=== PATIENT | male | born 1945 | race Caucasian/White ===

== ENCOUNTER 2018-02-22 09:18 | Inpatient (IN) | payer OTHER ==
--- NOTE | 2018-02-22 09:53 | EDPHY ---
General Time Seen by Provider: 02/22/18 09:50 Narrative: CHIEF COMPLAINT: Abdominal pain, previous bowel obstruction HISTORY OF PRESENT ILLNESS: Patient presents with complaints of abdominal pain with previous bowel obstruction. He states that he began feeling "a rolling pain by my unable last night."He describes it as constant. Moderate to severe. Gradual onset. He has felt nauseated and had dry heaves. He has decreased appetite. He has been burping since this morning. He does have a history of small-bowel obstruction that was managed conservatively approximately 1 year ago. No surgical intervention. No fever chills. No trauma or injury. He does have constipation. No rectal fullness. No other associated complaints or modifying factors. REVIEW OF SYSTEMS: Ten systems reviewed and are negative unless otherwise noted in the HPI PCP: Located in [place] SPECIALISTS: None PAST MEDICAL HISTORY: Small-bowel obstruction, hypertension PAST SURGICAL HISTORY: No previous surgeries SOCIAL HISTORY: Never smoker. Lives with his in [place]. Currently visiting his son in [place]. 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 There is mild tympany. There is no rigidity or guarding. Bowel sounds are markedly decreased in all 4 quadrants. No palpable mass. No CVA tenderness. Back: non-tender, no bony abnormalities Neurological: A&O, nonfocal, normal gait Skin: Warm and dry, no rash no petechiae or purpura Extremities: Nontender, no pedal edema Psychiatric: Mood and affect normal DIFFERENTIAL DIAGNOSES: Including but not limited to small-bowel obstruction, partial small-bowel obstruction, cecal volvulus, ileus, enteritis, diverticulitis, constipation, obstipation MDM: 9:55 a.m. Abdominal pain with nausea vomiting and decreased appetite with high suspicion for bowel obstruction. 10:45 a.m. CBC reveals mild leukocytosis. Chemistries unremarkable. CT pending. 11:20 a.m. Notified by RN that the patient is complaining of increasing pain. I have re- evaluated him and discussed his allergy to hydromorphone. He states he does have difficulty breathing with but has no problem with morphine and has tolerated this 11:45 p.m. Case discussed with radiologist. CT scan reveals a small bowel obstruction with a transition point right lower quadrant, not involving the appendix. There is also a mass on the right renal pelvis that needs further evaluation. Possibilities include renal cell carcinoma. No other acute findings noted. 12:00 p.m. Case discussed with on-call surgeon Dr. Mcmahon. We discussed the bowel obstruction of the possible mass. We discussed that he has had no previous abdominal surgeries. He recommends placement of a nasogastric tube, admission to the hospitalist and he will evaluate the patient. 12:10 p.m. Patient re-evaluated. He is agreeable to admission to the hospital. He is agreeable to the NG tube placement. We discussed remainder of the CT scan findings. 12:20 p.m. Case discussed with hospitalist Dr. Meade. She has accepted the patient to her service. Patient be admitted to her service in stable condition. 12:[address] Mcmahon is in the department to evaluate the patient. SUPERVISION: Patient was independently examined, but I discussed the case with my secondary supervising physician Dr. Felton - History Smoking Status: Never smoked - Objective Vital Signs: Initial Vital Signs Temperature (C) 98.6 F 02/22/18 09:25 Heart Rate 76 02/22/18 09:25 Respiratory Rate 18 02/22/18 09:25 Blood Pressure 163/86 H 02/22/18 09:25 O2 Sat (%) 92 02/22/18 09:25 O2 Delivery Mode Room Air O2 (L/minute) 2 Allergies/Adverse Reactions: hydromorphone [From Dilaudid] Allergy (Unknown, Verified 02/22/18 15:34) Other-Enter Comments Home Medications: Medication Instructions Recorded Adderall 10 MG (*) 02/22/18 Aspirin EC [Aspirin EC 81 mg (*)] 81 mg PO DAILY 02/22/18 Atacand 02/22/18 Lexapro 02/22/18 Norvasc 10 mg (*) 02/22/18 Omeprazole 40 mg PO DAILY 02/22/18 Potass Cit-Sod Cit-Citric Soln 02/22/18 Laboratory Results: Laboratory Results 02/22/18 09:45 02/22/18 09:45 02/22/18 02/22/18 02/22/18 09:59 09:45 09:45 WBC RBC Hgb POC Hgb 16.0 gm/dL gm/dL (13.7-17.5) Hct POC Hct 47 % % (40-51) MCV MCH MCHC RDW Plt Count MPV Neut % (Auto) Lymph % (Auto) [place] % (Auto) Eos % (Auto) Baso % (Auto) Nucleat RBC Rel Count Absolute Neuts (auto) Absolute Lymphs (auto) Absolute Monos (auto) Absolute Eos (auto) Absolute Basos (auto) Absolute Nucleated RBC Immature Gran % Immature Gran # PT 13.1 SEC SEC (12.0-15.0) INR 0.97 (0.83-1.16) APTT 29.6 SEC SEC (23.0-38.0) POC Sodium 140 mEq/L mEq/L (135-145) Sodium 139 mEq/L mEq/L (135-145) POC Potassium 3.9 mEq/L mEq/L (3.3-5.0) Potassium 4.1 mEq/L mEq/L (3.3-5.0) POC Chloride 105 mEq/L mEq/L (97-110) Chloride 104 mEq/L mEq/L (97-110) Carbon Dioxide 22 mEq/l mEq/l (22-31) Anion Gap 13 mEq/L mEq/L (8-16) POC BUN 27 mg/dL H mg/dL (7-23) BUN 25 mg/dL H mg/dL (7-23) Creatinine 1.1 mg/dL mg/dL (0.7-1.3) POC Creatinine 1.1 mg/dL mg/dL (0.7-1.3) Estimated GFR > 60 Glucose 170 mg/dL H mg/dL (70-100) POC Glucose 178 mg/dL H mg/dL (70-100) Calcium 9.7 mg/dL mg/dL (8.5-10.4) Total Bilirubin 0.9 mg/dL mg/dL (0.1-1.4) Conjugated Bilirubin 0.3 mg/dL mg/dL (0.0-0.5) Unconjugated Bilirubin 0.6 mg/dL mg/dL (0.0-1.1) AST 36 IU/L IU/L (17-59) ALT 52 IU/L IU/L (21-72) Alkaline Phosphatase 84 IU/L IU/L (38-126) Total Protein 7.1 g/dL g/dL (6.3-8.2) Albumin 4.0 g/dL g/dL (3.5-5.0) Lipase 115 IU/L IU/L (23-300) 02/22/18 09:45 WBC 10.65 10^3/uL H 10^3/uL (3.80-9.50) RBC 4.74 10^6/uL 10^6/uL (4.40-6.38) Hgb 15.6 g/dL g/dL (13.7-17.5) POC Hgb Hct 45.2 % % (40.0-51.0) POC Hct MCV 95.4 fL fL (81.5-99.8) MCH 32.9 pg pg (27.9-34.1) MCHC 34.5 g/dL g/dL (32.4-36.7) RDW 13.0 % % (11.5-15.2) Plt Count 249 10^3/uL 10^3/uL (150-400) MPV 9.6 fL fL (8.7-11.7) Neut % (Auto) 80.2 % H % (39.3-74.2) Lymph % (Auto) 11.0 % L % (15.0-45.0) [place] % (Auto) 7.6 % % (4.5-13.0) Eos % (Auto) 0.5 % L % (0.6-7.6) Baso % (Auto) 0.3 % % (0.3-1.7) Nucleat RBC Rel Count 0.0 % % (0.0-0.2) Absolute Neuts (auto) 8.55 10^3/uL H 10^3/uL (1.70-6.50) Absolute Lymphs (auto) 1.17 10^3/uL 10^3/uL (1.00-3.00) Absolute Monos (auto) 0.81 10^3/uL H 10^3/uL (0.30-0.80) Absolute Eos (auto) 0.05 10^3/uL 10^3/uL (0.03-0.40) Absolute Basos (auto) 0.03 10^3/uL 10^3/uL (0.02-0.10) Absolute Nucleated RBC 0.00 10^3/uL 10^3/uL (0-0.01) Immature Gran % 0.4 % % (0.0-1.1) Immature Gran # 0.04 10^3/uL 10^3/uL (0.00-0.10) PT INR APTT POC Sodium Sodium POC Potassium Potassium POC Chloride Chloride Carbon Dioxide Anion Gap POC BUN BUN Creatinine POC Creatinine Estimated GFR Glucose POC Glucose Calcium Total Bilirubin Conjugated Bilirubin Unconjugated Bilirubin AST ALT Alkaline Phosphatase Total Protein Albumin Lipase Medications Given: Discontinued Medications Fentanyl (Sublimaze) 50 mcg IVP EDNOW ONE Stop: 02/22/18 10:06 Last Admin: 02/22/18 10:07 Dose: 50 mcg Sodium Chloride (Ns) 1,000 mls @ 0 mls/hr IV ONCE ONE; Wide Open PRN Reason: Protocol Stop: 02/22/18 10:01 Last Admin: 02/22/18 10:04 Dose: 1,000 mls Morphine Sulfate (Morphine) 4 mg IVP EDNOW ONE Stop: 02/22/18 11:27 Last Admin: 02/22/18 11:29 Dose: 4 mg Ondansetron HCl (Zofran) 4 mg IVP EDNOW ONE Stop: 02/22/18 10:06 Last Admin: 02/22/18 10:08 Dose: 4 mg Point of Care Test Results: Chemistry 02/22/18 09:59 POC Sodium 140 mEq/L mEq/L (135-145) POC Potassium 3.9 mEq/L mEq/L (3.3-5.0) POC Chloride 105 mEq/L mEq/L (97-110) POC BUN 27 mg/dL H mg/dL (7-23) POC Creatinine 1.1 mg/dL mg/dL (0.7-1.3) POC Glucose 178 mg/dL H mg/dL (70-100) ISTAT H&H 02/22/18 09:59 POC Hgb 16.0 gm/dL gm/dL (13.7-17.5) POC Hct 47 % % (40-51) Departure - Departure Disposition: [facility] Acute Clinical Impression: Small bowel obstruction, Renal mass of unknown nature Condition: Good Referrals: NAREN WONG [Other] - As per Instructions
[2018-02-22] MEDS ORDERED: NS 1,000 ML IV ONE (10:00)
[2018-02-22 10:02] LABS: PLATELET COUNT 249 10^3/uL (150-400)
[2018-02-22] MEDS ORDERED: ONDANSETRON 4 MG/2 ML VIAL IVP ONE (10:05)
[2018-02-22] MEDS ORDERED: fentaNYL 100 MCG/2 ML INJ IVP ONE (10:05)
[2018-02-22] MEDS ORDERED: fentaNYL 100 MCG/2 ML INJ ONE (10:06)
[2018-02-22] MEDS ORDERED: ONDANSETRON 4 MG/2 ML VIAL ONE (10:06)
[2018-02-22 10:26] LABS: INR 0.97 (0.83-1.16); PROTIME(PATIENT) 13.1 SEC (12.0-15.0)
[2018-02-22] MEDS ORDERED: IOPAMIDOL (ISOVUE-300) 100 ML BTL ONE (10:56)
[2018-02-22] MEDS ORDERED: ONDANSETRON 4 MG/2 ML VIAL IVP PRN (12:15)
[2018-02-22] MEDS ORDERED: LIDOCAINE 2% JELLY 20 ML (UROJECT) ONE (12:19)
[2018-02-22] MEDS ORDERED: D5W NS 1,000 ML IV SCH (12:30)
--- NOTE | 2018-02-22 14:11 | GCON ---
[f rep st] CONSULTATION REASON FOR CONSULTATION: Small bowel obstruction. HISTORY: The patient presents with nausea and vomiting. Well last evening. His last stool was at 1 p.m. At 3 a.m., he started vomiting, he had at 5 to 6 episodes. He came to the ER at approximately 9 in the morning. The patient is a 72-year-old white male who had a previous bowel obstruction on February 12, 2017. This was treated with decompressive therapy with NG tube. He did not have surgery. There was, however, no followup in terms of a small bowel followthrough to explain the etiology. He has no prior abdominal surgery and no prior intraabdominal infections. There is no family history of inflammatory bowel disease or ulcerative colitis. There is no history of recent upper respiratory tract infection, antibiotic use in the last 6 months, or travel in the last 6 months. He did have diarrhea for 2 to 3 weeks but that stopped 1 week ago. He used to have abdominal pain in the 1980s which went unexplained and was dismissed as irritable bowel syndrome. SOCIAL HISTORY: He smoked from ages 15 to 25 at a peak of 1 pack per day. He does not drink. He had an adverse reaction to Dilaudid in that he could not catch his breath after a dose. This does not sound like an anaphylactic or angioedema like reaction, but perhaps a "stiff chest" as seen with rapid fentanyl dose. He has tolerated other narcotics. MEDICATIONS: His medications include Atacand, Lexapro, Norvasc, Adderall, Prilosec, potassium citrate, and an 81 mg aspirin. PAST SURGICAL HISTORY: His surgeries include a vasectomy which was his first surgery and complicated by extensive hemorrhage requiring transfusion. He has had a right Achilles tendon repair and bilateral cataract extraction. There is no history of rheumatic fever, tuberculosis, or hepatitis. REVIEW OF SYSTEMS: He has been hypertensive for 25 years. He wears hearing aids. He has a full upper dental plate. Approximately one-third of his teeth ( right lower) are also missing. He has poorly fitting dentures and that is to be addressed. He does have esophageal spasm. He does have esophageal reflux, he takes Prilosec for that, and his current symptomatology occurs every 2 to 3 weeks. He is known to have a left bundle branch block. He does wear lenses for visual correction. He has a history of kidney stones. There are no limits on his activities. No history of steroid use. PHYSICAL EXAMINATION: GENERAL: The patient is in minimal distress. NG tube was being placed. There was some difficulty, and I took over and placed the NG tube. He is awake, alert, and oriented. He is hard of hearing. HEENT: Skull is normocephalic and atraumatic. His pupils are equal, round, and reactive. The NG tube is in his right naris and its position in the stomach has been confirmed by Radiology. NECK: Nontender. There is no thyroid enlargement. There are no carotid bruits. LYMPHATIC: There is no cervical, supraclavicular , axillary, or inguinal lymphadenopathy. BACK: Unremarkable. LUNGS: Clear to auscultation. CARDIAC: Exam shows S1, S2 to be normal with normal split of S2 without murmurs, rubs, or gallops. ABDOMEN: Distended. His abdomen has very hypoactive bowel sounds. He is not tender to palpation in any region. He is not tender in his abdomen with cough. I do not detect any hernias. EXTREMITIES: Lower extremities are unremarkable. LABORATORY DATA: Laboratories reveal a white count of 10.6 with 80% neutrophils , hematocrit is 45, platelet count is 249. INR is 0.97. BUN is 25, creatinine is 1.1. The CT shows a small bowel obstruction with transition point in the right lower quadrant. Could this be related to a Meckel diverticulum? I think that is a possibility. There is a 12 mm hypervascular nodule at the lower pole of the right kidney which is suspicious for renal cell carcinoma. That will be followed up at a later time. He does have a small calculus in the left lower pole of his left kidney, consistent with his prior history of nephrolithiasis. IMPRESSION: Patient with small bowel obstruction of uncertain etiology. We will plan place a nasogastric tube (done) and decompress him. He will be kept at bowel rest. If he deteriorates, exploration will be considered but I do not feel it is necessary at this time. If this does resolve without surgery, then I do feel a small bowel followthrough will be important to make sure we have not missed any other process. /[id number]/MODL MTDD
[2018-02-22] MEDS ORDERED: hydrALAZINE 20 MG/ML VIAL IVP PRN (15:31)
--- NOTE | 2018-02-22 15:41 | PDGENHP ---
History and Physical - Chief Complaint abdominal pain, N/V - History of Present Illness 72 yo male with h/o previous SBO 1 year ago presented to ED with abdominal pain , nausea and vomiting. His pain awoke him early this morning. He then developed nausea and vomited multiple times. No hematemesis or coffee ground emesis. Last BM was yesterday afternoon. No fevers, chills, CP or SOB. He had a similar event 1 yr ago which was managed conservatively with NG tube. He has no prior abdominal surgeries. In the ED, CT revealed SBO with transition point in the right lower quadrant. In addition, a right renal mass is incidentally seen. He has a h/o kidney stones, but no known history of renal mass. No weight loss. Surgery consult is obtained, NG tube is placed, and the patient is admitted to the hospital for further management. History Information - Allergies/Home Medication List Allergies/Adverse Reactions: hydromorphone [From Dilaudid] Allergy (Unknown, Verified 02/22/18 15:34) Other-Enter Comments Home Medications: Aspirin EC [Aspirin EC 81 mg (*)] 81 mg PO DAILY 02/22/18 [Last Taken 02/21/18] Candesartan Cilexetil 32 mg PO DAILY 02/22/18 [Last Taken 02/21/18] Dextroamphetamine/Amphetamine [Adderall 30 mg Tablet] 30 mg PO TID 02/22/18 [ Last Taken 02/21/18] Escitalopram Oxalate [Lexapro] 10 mg PO DAILY 02/22/18 [Last Taken 02/21/18] Omeprazole 40 mg PO DAILY 02/22/18 [Last Taken 02/21/18] Potass Cit-Sod Cit-Citric Soln 02/22/18 [Last Taken Unknown] amLODIPine BESYLATE [Norvasc 10 mg (*)] 10 mg PO DAILY 02/22/18 [Last Taken ] I have personally reviewed and updated: family history, medical history, social history, surgical history - Past Medical History GERD, hypertension Additional medical history: ADHA. Kidney stones - Surgical History Additional surgical history: Vasectomy. Achilles tendon repair - Family History Positive for: non-pertinent - Social History Smoking Status: Never smoked Alcohol Use: None Drug Use: None Additional social history: Lives in [place]. He is travelling in [place]. Notes a lot of family stressors. Review of Systems Review of Systems: ROS: 10pt was reviewed & negative except for what was stated in HPI & below Physical Exam Physical Exam: Temp Pulse Resp BP Pulse Ox 37.6 C 74 12 133/72 H 85 L 02/22/18 13:23 02/22/18 13:23 02/22/18 13:23 02/22/18 13:23 02/22/18 13:23 Constitutional: no apparent distress Eyes: PERRL Ears, Nose, Mouth, Throat: moist mucous membranes Cardiovascular: regular rate and rhythym Respiratory: no respiratory distress, clear to auscultation Gastrointestinal: other (soft, mild distention, mild TTP, no r/r/g, +hypoactive bowel tones) Skin: warm Musculoskeletal: full muscle strength Neurologic: AAOx3 Psychiatric: interacting appropriately Lab Data & Imaging Review 02/22/18 09:45 02/22/18 09:45 WBC 10.65 10^3/uL (3.80-9.50) H 02/22/18 09:45 RBC 4.74 10^6/uL (4.40-6.38) 02/22/18 09:45 Hgb 15.6 g/dL (13.7-17.5) 02/22/18 09:45 POC Hgb 16.0 gm/dL (13.7-17.5) 02/22/18 09:59 Hct 45.2 % (40.0-51.0) 02/22/18 09:45 POC Hct 47 % (40-51) 02/22/18 09:59 MCV 95.4 fL (81.5-99.8) 02/22/18 09:45 MCH 32.9 pg (27.9-34.1) 02/22/18 09:45 MCHC 34.5 g/dL (32.4-36.7) 02/22/18 09:45 RDW 13.0 % (11.5-15.2) 02/22/18 09:45 Plt Count 249 10^3/uL (150-400) 02/22/18 09:45 MPV 9.6 fL (8.7-11.7) 02/22/18 09:45 Neut % (Auto) 80.2 % (39.3-74.2) H 02/22/18 09:45 Lymph % (Auto) 11.0 % (15.0-45.0) L 02/22/18 09:45 [place] % (Auto) 7.6 % (4.5-13.0) 02/22/18 09:45 Eos % (Auto) 0.5 % (0.6-7.6) L 02/22/18 09:45 Baso % (Auto) 0.3 % (0.3-1.7) 02/22/18 09:45 Nucleat RBC Rel Count 0.0 % (0.0-0.2) 02/22/18 09:45 Absolute Neuts (auto) 8.55 10^3/uL (1.70-6.50) H 02/22/18 09:45 Absolute Lymphs (auto) 1.17 10^3/uL (1.00-3.00) 02/22/18 09:45 Absolute Monos (auto) 0.81 10^3/uL (0.30-0.80) H 02/22/18 09:45 Absolute Eos (auto) 0.05 10^3/uL (0.03-0.40) 02/22/18 09:45 Absolute Basos (auto) 0.03 10^3/uL (0.02-0.10) 02/22/18 09:45 Absolute Nucleated RBC 0.00 10^3/uL (0-0.01) 02/22/18 09:45 Immature Gran % 0.4 % (0.0-1.1) 02/22/18 09:45 Immature Gran # 0.04 10^3/uL (0.00-0.10) 02/22/18 09:45 PT 13.1 SEC (12.0-15.0) 02/22/18 09:45 INR 0.97 (0.83-1.16) 02/22/18 09:45 APTT 29.6 SEC (23.0-38.0) 02/22/18 09:45 POC Sodium 140 mEq/L (135-145) 02/22/18 09:59 Sodium 139 mEq/L (135-145) 02/22/18 09:45 POC Potassium 3.9 mEq/L (3.3-5.0) 02/22/18 09:59 Potassium 4.1 mEq/L (3.3-5.0) 02/22/18 09:45 POC Chloride 105 mEq/L (97-110) 02/22/18 09:59 Chloride 104 mEq/L (97-110) 02/22/18 09:45 Carbon Dioxide 22 mEq/l (22-31) 02/22/18 09:45 Anion Gap 13 mEq/L (8-16) 02/22/18 09:45 POC BUN 27 mg/dL (7-23) H 02/22/18 09:59 BUN 25 mg/dL (7-23) H 02/22/18 09:45 Creatinine 1.1 mg/dL (0.7-1.3) 02/22/18 09:45 POC Creatinine 1.1 mg/dL (0.7-1.3) 02/22/18 09:59 Estimated GFR > 60 02/22/18 09:45 Glucose 170 mg/dL (70-100) H 02/22/18 09:45 POC Glucose 178 mg/dL (70-100) H 02/22/18 09:59 Calcium 9.7 mg/dL (8.5-10.4) 02/22/18 09:45 Total Bilirubin 0.9 mg/dL (0.1-1.4) 02/22/18 09:45 Conjugated Bilirubin 0.3 mg/dL (0.0-0.5) 02/22/18 09:45 Unconjugated Bilirubin 0.6 mg/dL (0.0-1.1) 02/22/18 09:45 AST 36 IU/L (17-59) 02/22/18 09:45 ALT 52 IU/L (21-72) 02/22/18 09:45 Alkaline Phosphatase 84 IU/L (38-126) 02/22/18 09:45 Total Protein 7.1 g/dL (6.3-8.2) 02/22/18 09:45 Albumin 4.0 g/dL (3.5-5.0) 02/22/18 09:45 Lipase 115 IU/L (23-300) 02/22/18 09:45 Assessment & Plan Assessment: SBO - Etiology unclear. No prior abdominal surgeries. Appreciate surgery consult. Conservative management is planned with NG tube for decompression, NPO , pain control. If he does not need surgery, likely will undergo SBFT prior to d/c. Renal mass - discussed with pt this needs follow up with his urologist immediately upon return to [place] as he may warrant resection vs tissue biopsy for diagnosis. Renal cell carcinoma is possible. He understands and agrees to see his Urologist as soon as he gets home. Hypertension - PO meds held due to above, will provide prn hydralazine for SBP > 160 GERD - IV PPI while NPO ADHD - hold Adderall while NPO Depression - resume Celexa when able to take po Full code DVT PPLX - Lovenox Dispo - admit to inpt, anticipate >48 hrs hospitalization for ongoing management of acute SBO.
--- NOTE | 2018-02-22 16:09 | PDMN ---
Medical Necessity Medical necessity: MCG M210, Intestinal Obstruction, 2 days. 72 y/o w SBO, NGT placed, NPO, surgical consult. Potential surgery. IV fluids and IV opioids required, SBP 160s, elevated WBC,
[2018-02-22] MEDS: PANTOPRAZOLE SODIUM 40 MG VIAL IVP SCH (16:14)
[2018-02-22] MEDS: NS 1,000 ML IV SCH (16:15)
[2018-02-23 04:57] LABS: PLATELET COUNT 214 10^3/uL (150-400)
[2018-02-23] MEDS: PANTOPRAZOLE SODIUM 40 MG VIAL IVP SCH (08:00)
[2018-02-23] MEDS: NS 1,000 ML IV SCH ×2 (08:01→16:15)
--- NOTE | 2018-02-23 14:23 | ASMTCMCOM ---
CM Note CM Note Notes: Pt visiting from [place], no therapies ordered. Anticipate pt will dc home w/support of family when medically stable, CM available for any changes. DC Plan: Independent Date Signed: 02/23/2018 02:22 PM Electronically Signed By:Melani Esqueda RN
--- NOTE | 2018-02-23 15:47 | HOSPPROG ---
Hospitalist Progress Note Assessment/Plan: 72 yo male visiting from [place] with h/o prior SBO 1 year ago, which resolved with conservative management, presents to ED with abdominal pain, N/V, admitted for SBO. SBO - Etiology unclear. No prior abdominal surgeries. NG tube remains in place , not a lot of output. Abd xray pers reviewed/interp - small air fluid levels, no distended loops of bowel. Surgery following. -cont conservative management, NG tube -likely warrants SBFT prior to d/c to evaluate for underlying cause as this is his 2nd event Renal mass - pt will follow up with his urologist immediately upon return to [place]. He may warrant resection vs tissue biopsy for diagnosis. Renal cell carcinoma is possible. He understands and agrees to see his Urologist as soon as he gets home. Hypertension - PO meds held due to above, BP's adequate. -prn hydralazine for SBP >160 GERD - IV PPI while NPO ADHD - hold Adderall while NPO Depression - resume Celexa when able to take po Full code DVT PPLX - Lovenox Dispo - cont inpt, ADD uncertain Subjective: Pt reports pain is a bit better, was 7-8/10 upon arrival, now 3-4/ 10. No N/V, though NG tube in place. No flatus or BM. No fevers/chills. Objective: Vital Signs Temp Pulse Resp BP Pulse Ox 37.1 C 61 20 145/77 H 94 02/23/18 15:19 02/23/18 15:19 02/23/18 15:19 02/23/18 15:19 02/23/18 15:19 Laboratory Results 02/23/18 04:40 02/23/18 04:40 02/22/18 02/23/18 02/24/18 05:59 05:59 05:59 Intake Total 1632 Output Total 1350 600 Balance 282 -600 PT 13.1 SEC (12.0-15.0) 02/22/18 09:45 INR 0.97 (0.83-1.16) 02/22/18 09:45 - Physical Exam Constitutional: no apparent distress Eyes: PERRL Ears, Nose, Mouth, Throat: moist mucous membranes Cardiovascular: regular rate and rhythym Respiratory: no respiratory distress, clear to auscultation Gastrointestinal: other (soft, mild distention, +BS, no r/r/g) Skin: warm Musculoskeletal: full muscle strength Neurologic: AAOx3 Psychiatric: interacting appropriately ICD10 Worksheet Patient Problems: Problems Problem Status Onset Renal mass of unknown nature Acute Small bowel obstruction Acute
--- NOTE | 2018-02-23 16:51 | SOAPPROG ---
SOAP Progress Note Assessment/Plan: 02/23/18 16:40 PAD#1 Assessment: Patient seen briefly this AM then again this afternoon. Generally he feels better but has not passed either gas or stool. He now thinks that, in fact, he may have had a SBFT last year and does not think that there were any findings. His X-ray does not show any air fluid levels NG output has slowed down. WBC returning to normal. Plan: F/u Xray in AM. If he does not look like he is resolving a diagnostic laparoscopy will be considered for tomorrow afternoon. Subjective: I have not passed gas or stool. I feel somewhat better. Objective: Vital Signs Temp Pulse Resp BP Pulse Ox 37.1 C 61 20 145/77 H 94 02/23/18 15:19 02/23/18 15:19 02/23/18 15:19 02/23/18 15:19 02/23/18 15:19 Laboratory Results 02/23/18 04:40 02/23/18 04:40 02/22/18 02/23/18 02/24/18 05:59 05:59 05:59 Intake Total 1632 Output Total 1350 600 Balance 282 -600 PT 13.1 SEC (12.0-15.0) 02/22/18 09:45 INR 0.97 (0.83-1.16) 02/22/18 09:45 - Time Spent With Patient Time Spent With Patient: 25 - Pending Discharge Pending Discharge Within 24 Hours: No Physical Exam - Physical Exam General Appearance: WD/WN, alert, mild distress EENT: other (NG tube in place) Respiratory: chest non-tender, lungs clear, normal breath sounds Cardiac/Chest: regular rate, rhythm Abdomen: distended (very hypoactive bowel sounds, nontender) Back: Normal inspection Neuro/Psych: no motor/sensory deficits, alert, normal mood/affect, oriented x 3 ICD10 Worksheet Patient Problems: Problems Problem Status Onset Renal mass of unknown nature Acute Small bowel obstruction Acute
[2018-02-24] MEDS: NS 1,000 ML IV SCH (00:21)
[2018-02-24] MEDS: PANTOPRAZOLE SODIUM 40 MG VIAL IVP SCH (08:08)
--- NOTE | 2018-02-24 09:05 | SOAPPROG ---
SOAP Progress Note Assessment/Plan: 02/23/18 16:40 PAD#1 Assessment: Patient seen briefly this AM then again this afternoon. Generally he feels better but has not passed either gas or stool. He now thinks that, in fact, he may have had a SBFT last year and does not think that there were any findings. His X-ray does not show any air fluid levels NG output has slowed down. WBC returning to normal. Plan: F/u Xray in AM. If he does not look like he is resolving a diagnostic laparoscopy will be considered for tomorrow afternoon. 02/24/18 09:02 PAD#2 In spite of above, further research by the patient's of the med portable does NOT reveal any SBFT done after the last event. Assessment: Doing well! No pain medication required since last night but no flatus yet. Abdominal xray shows gas progressing into ascending colon. AM labs pending NG 575cc in last 24 hours. Plan: Will try NG clamping x 4 hours. IF labs ok and tolerates NG clamp, will DC NG and try liquids this evening with anticipation of discharge tomorrow afternoon If tolerating diet. Would wait 2 weeks for SBFT to eliminate false positives. Subjective: I feel better Objective: Vital Signs Temp Pulse Resp BP Pulse Ox 36.9 C 60 16 146/69 H 96 02/24/18 08:00 02/24/18 08:00 02/24/18 08:00 02/24/18 08:00 02/24/18 08:00 Laboratory Results 02/23/18 04:40 02/23/18 04:40 02/23/18 02/24/18 02/25/18 05:59 05:59 05:59 Intake Total 1632 0 3037 Output Total 1350 1225 Balance 282 -1225 3037 PT 13.1 SEC (12.0-15.0) 02/22/18 09:45 INR 0.97 (0.83-1.16) 02/22/18 09:45 - Time Spent With Patient Time Spent With Patient: 15 Physical Exam - Physical Exam General Appearance: WD/WN, alert, no apparent distress Respiratory: chest non-tender, lungs clear, normal breath sounds Cardiac/Chest: regular rate, rhythm Abdomen: non-tender (, hypoactive bowel sounds but improved since yesterday.) Male Genitalia: deferred Rectal: deferred Back: Normal inspection Skin: normal color, warm/dry ICD10 Worksheet Patient Problems: Problems Problem Status Onset Renal mass of unknown nature Acute Small bowel obstruction Acute
--- NOTE | 2018-02-24 09:30 | HOSPPROG ---
Hospitalist Progress Note Assessment/Plan: 72 yo male visiting from [place] with h/o prior SBO 1 year ago, which resolved with conservative management, presents to ED with abdominal pain, N/V, admitted for SBO. Today is my first encounter with the patient, chart reviewed. *SBO - Etiology unclear -No prior abdominal surgeries -surgery following, plan is to clamp NG tube x 4 hours (having no pain during my interview, had significant pain prior to admission) -likely warrants SBFT prior to d/c to evaluate for underlying cause as this is his 2nd event *Renal mass - pt will follow up with his urologist immediately upon return to [place]. He may warrant resection vs tissue biopsy for diagnosis. Renal cell carcinoma is possible. He understands and agrees to see his Urologist as soon as he gets home. He will need a copy of the CT scan to take with hime *Hypertension - PO meds held due to above, BP's adequate. -prn hydralazine for SBP >160 *GERD - IV PPI while NPO *ADHD - hold Adderall while NPO Depression - resume Celexa when able to take po Full code DVT PPLX - Lovenox Dispo - cont inpt, reviewed his care with Dr Mcmahon. Subjective: Peterson is feeling better today, has no abdominal pain. Objective: Vital Signs Temp Pulse Resp BP Pulse Ox 36.9 C 60 16 146/69 H 96 02/24/18 08:00 02/24/18 08:00 02/24/18 08:00 02/24/18 08:00 02/24/18 08:00 02/23/18 02/24/18 02/25/18 05:59 05:59 05:59 Intake Total 1632 0 3037 Output Total 1350 1225 Balance 282 -1225 3037 PT 13.1 SEC (12.0-15.0) 02/22/18 09:45 INR 0.97 (0.83-1.16) 02/22/18 09:45 - Physical Exam Constitutional: no apparent distress, appears nourished, not in pain Eyes: PERRL Ears, Nose, Mouth, Throat: hearing normal Cardiovascular: regular rate and rhythym Respiratory: no respiratory distress Gastrointestinal: soft, non-tender abdomen, No normoactive bowel sounds ( hypoactive) Skin: warm Musculoskeletal: full muscle strength Neurologic: AAOx3 Psychiatric: interacting appropriately ICD10 Worksheet Patient Problems: Problems Problem Status Onset Renal mass of unknown nature Acute Small bowel obstruction Acute
[2018-02-24 09:37] LABS: PLATELET COUNT 222 10^3/uL (150-400)
[2018-02-24] MEDS: BISACODYL 10 MG SUPP PR ONE ×2 (18:21→18:37)
[2018-02-24] MEDS: ENOXAPARIN 40 MG/0.4 ML SYR SC SCH (21:38)
[2018-02-24] MEDS: CANDESARTAN CILEXETIL 32 MG PO SCH (21:38)
[2018-02-25] MEDS ORDERED: PANTOPRAZOLE SODIUM 40 MG TAB PO SCH (09:00)
[2018-02-25] MEDS ORDERED: ASPIRIN EC 81 MG TAB PO SCH (09:00)
[2018-02-25] MEDS ORDERED: ESCITALOPRAM OXALATE 10 MG TAB PO SCH (09:00)
--- NOTE | 2018-02-25 10:14 | HOSPPROG ---
Hospitalist Progress Note Assessment/Plan: 72 yo male visiting from [place] with h/o prior SBO 1 year ago, which resolved with conservative management, presents to ED with abdominal pain, N/V, admitted for SBO. *SBO - Etiology unclear -resolving *Renal mass - pt will follow up with his urologist immediately upon return to [place]. He may warrant resection vs tissue biopsy for diagnosis. Renal cell carcinoma is possible. He understands and agrees to see his Urologist as soon as he gets home. He will need a copy of the CT scan to take with hime *Hypertension - PO meds held due to above, BP's adequate. -prn hydralazine for SBP >160 *GERD - IV PPI while NPO *ADHD - Adderall Depression - resume Celexa when able to take po Full code DVT PPLX - Lovenox Dispo -reviewed care w Dr Mcmahon, will advance his diet to regular, tolerated two clear liquid diets. Will need to get a SBFT when he returns to [place]. Needs to take his records w him to get further w/u in regards to his renal mass Subjective: Peterson is feeling much better. Objective: Vital Signs Temp Pulse Resp BP Pulse Ox 36.5 C 73 18 133/76 H 92 02/25/18 07:36 02/25/18 07:36 02/25/18 07:36 02/25/18 07:36 02/25/18 07:36 Laboratory Results 02/24/18 09:06 02/24/18 09:06 02/24/18 02/25/18 02/26/18 05:59 05:59 05:59 Intake Total 0 3037 Output Total 1225 1600 Balance -1225 1437 PT 13.1 SEC (12.0-15.0) 02/22/18 09:45 INR 0.97 (0.83-1.16) 02/22/18 09:45 - Physical Exam Constitutional: no apparent distress, appears nourished, not in pain Eyes: PERRL Ears, Nose, Mouth, Throat: hearing normal Cardiovascular: regular rate and rhythym Respiratory: no respiratory distress Gastrointestinal: normoactive bowel sounds Skin: warm, normal color Musculoskeletal: full muscle strength Neurologic: AAOx3 Psychiatric: interacting appropriately ICD10 Worksheet Patient Problems: Problems Problem Status Onset Renal mass of unknown nature Acute Small bowel obstruction Acute
[2018-02-25 11:59] VITALS: BP 188/87
[2018-02-25] MEDS: CANDESARTAN CILEXETIL 32 MG PO SCH (14:24)
[2018-02-25] MEDS: ENOXAPARIN 40 MG/0.4 ML SYR SC SCH (14:24)
--- NOTE | 2018-02-25 15:11 | ASDISCHSUM ---
Discharge Information Plan Status:Home with No Needs Medically Cleared to Leave:02/25/2018 Discharge Date:02/25/2018 03:00 PM CM D/C Disposition:Home, Routine, Self-Care ADT D/C Disposition:Home, Routine, Self-Care Projected Discharge Date:02/25/2018 03:00 PM Transportation at D/C:Family Discharge Delay Reason: Follow-Up Date:02/25/2018 03:00 PM Discharge Slot: Final Diagnosis: Placement Information Patient Contact Information Contact Name:JENIFER Relationship: Address:[address] City:[place] [facility] Alternate Phone: State/Zip Code:[place] [address] Email: Financial Information Financial Class:[employer] Primary Plan Desc:[facility] Primary Plan Number:[id number] Secondary Plan Desc:MEDICARE INPATIENT Secondary Plan Number:[id number] Assessment Information [facility] CM Progress Note CM Note CM Note Notes: Pt visiting from [place], no therapies ordered. Anticipate pt will dc home w/support of family when medically stable, CM available for any changes. DC Plan: Independent Date Signed: 02/23/2018 02:22 PM Electronically Signed By:Melani Esqueda RN LACE LACMelchor Length of stay for Answers: 3 days current admission Acuity / Level of Answers: Yes Care: Did the patient have an inpatient admission? Comorbidities - select Answers: Other Notes: HTN, GERD all that apply # of Emergency department Answers: 1-2 visits in the last 6 months Score: 8 Date Signed: 02/25/2018 03:09 PM Electronically Signed By:YOLIS Angel Case Management Discharge Plan Note Case Management Discharge Discharge Order Complete? Answers: Yes Patient to Obtain Answers: via Family Medications Transportation Arranged Answers: Family/Friends Discharge Comments Notes: Pt's diet was advanced and tolerated. He has discharged home with his and no CM needs. He will follow up with his physican in [place] re the renal mass. Date Signed: 02/25/2018 03:09 PM Electronically Signed By:YOLIS Angel Intervention Information Intervention Type:*IM-Signed Date of Service:02/25/2018 02:42 PM Patient Type:Inpatient Staff Member:Maryana Montesinos Hours: Discipline: Severity: Comment:
--- NOTE | 2018-02-25 18:29 | GDS ---
[f rep st] DISCHARGE SUMMARY DISCHARGE DIAGNOSIS: 1. Small-bowel obstruction. 2. Renal mass. 3. Hypertension. 4. Gastroesophageal reflux disease. 5. Attention deficit hyperactivity disorder. 6. Depression. CONSULTATION: Dr. Willie Mcmahon. HISTORY: Briefly, the patient is a 72-year-old gentleman, who has a history of a previous small-bowel obstruction approximately a year ago. He presented to the emergency room with abdominal pain, nausea and vomiting. It woke him up in the morning. He developed nausea and vomited multiple times. He had a similar event approximately a year ago, which was managed conservatively with an NG tube. In the emergency room, he had a CT that revealed a small bowel obstruction with a transition point in the right lower quadrant. It also noted that he had a right renal mass that was incidentally seen. He had an NG that was placed. Surgery came and evaluated him. He was treated with conservative treatment. He had multiple imaging done. His most recent abdominal x-ray on showed a normalized bowel pattern. He slowly improved. The NG was clamped. He tolerated this and subsequently was placed on clear liquids. Today , he ate clear liquids and then he ate a regular lunch today. He has no pain and is feeling very good. He will be discharged home and follow up with his primary care provider in the outpatient setting. HOSPITAL COURSE: 1. Small-bowel obstruction. The etiology is unclear; it resolved. 2. Renal mass. He will follow up with the urologist immediately returning to [place]. He may need a resection versus a biopsy for diagnosis. He understood this and knows that he needs to see a urologist as soon as he gets home. He will get a copy of the CT scan to take with him. 3. Hypertension. Blood pressure is stable. 4. Gastroesophageal reflux disease. He was placed on IV PPI while he was not eating. 5. Attention deficit hyperactivity disorder, on Adderall. 6. Depression. Celexa is resumed. DISCHARGE CONDITION: Stable. Blood pressure is 133/76. O2 sats on room air 92 %. Respiratory rate is 18. Pulse is 73. Temperature is 36.5 Celsius. DISCHARGE MEDICATIONS: Please see the EMR. DISCHARGE INSTRUCTIONS: 1. To take copies of his imaging with him. 2. To get a small-bowel follow-through in approximately 2 weeks. 3. To get further evaluation about the renal mass. He realizes the importance of this. 4. If he develops fever, chills, has abdominal pain or has any vomiting and not tolerating a regular diet, to return to the ER. /[id number]/MODL MTDD
--- NOTE | 2018-02-25 20:19 | SOAPPROG ---
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/NO EVIDENCE OF HERNIA Plan: PROBABLY HOME TODAY/PATIENT WILL FOLLOW UP BACK IN [place] 02/25/18 20:18 Objective: Vital Signs Temp Pulse Resp BP Pulse Ox 37.1 C 68 18 188/87 H 93 02/25/18 11:54 02/25/18 11:54 02/25/18 11:54 02/25/18 12:03 02/25/18 11:54 Laboratory Results 02/24/18 09:06 02/24/18 09:06 02/24/18 02/25/18 02/26/18 05:59 05:59 05:59 Intake Total 0 3037 Output Total 1225 1600 Balance -1225 1437 PT 13.1 SEC (12.0-15.0) 02/22/18 09:45 INR 0.97 (0.83-1.16) 02/22/18 09:45 ICD10 Worksheet Patient Problems: Problems Problem Status Onset Renal mass of unknown nature Acute Small bowel obstruction Acute
== END 2018-02-25 15:00 | disposition home or self-care (01) | DRG 390 ==
LOC: F3E 13:02
PROVIDERS: ADMIT Hospitalist; ATTEND Hospitalist
PROC: 0D9670Z Drainage of Stomach with Drainage Device, Via Natural or Artificial Opening (ICD-10-PCS; principal; 2018-02-22)
DX: K56.600 Partial intestinal obstruction, unspecified as to cause (principal); N28.89 Other specified disorders of kidney and ureter; I10 Essential (primary) hypertension; K21.9 Gastro-esophageal reflux disease without esophagitis; F90.9 Attention-deficit hyperactivity disorder, unspecified type; F32.9 Major depressive disorder, single episode, unspecified
CPT/HCPCS: 82435-PO; 82565-PO; 82947-PO; 84132-PO; 84295-PO; 84520-PO; 85014-PO; 96374; J0360; J1650; J2270; J2405; J3010; Q9967